=== PATIENT | female | born 1975 | race Caucasian/White ===

== ENCOUNTER → 2017-11-18 18:52 | Outpatient (CLI) | payer BC, SELFPAY ==
[2017-11-18 07:21] VITALS: BP 122/84; BMI 30.3
== END ==
PROVIDERS: Visit Provider Physician Assistant Surgical
DX: J02.9 Acute pharyngitis, unspecified (principal)
CPT/HCPCS: 87081

== ENCOUNTER → 2017-11-26 09:50 | Outpatient (CLI) | payer BC, SELFPAY ==
[2017-11-26 11:41] LABS: ALB/GLOB Ratio 1.1 RATIO (0.9-2.4); AST(SGOT) 12 U/L (15-37); Alanine Aminotransfer ALT/SGPT 20 U/L (13-56); Albumin, Serum 3.6 g/dL (3.2-5.0); Alkaline Phosphatase 66 U/L (45-117); Anion Gap 7 (5-15); BUN 7 mg/dL (7-18); BUN/Creat Ratio 8.4 RATIO (10-20); Calcium,Total 8.5 mg/dL (8.5-10.1); Chloride 106 mmol/L (98-107); Cholesterol 183 mg/dL (200); Creatinine, Serum 0.83 mg/dL (0.55-1.02); EST Glomerular Filtration Rate 79 mL/min (>60); Est Glom Filt Rate - Afr Amer 95 mL/min (>60); Globulin 3.2 g/dL (2.2-4.2); Glucose 88 mg/dL (74-106); High Density Lipoprotein 54 mg/dL; Potassium 3.8 mmol/L (3.5-5.1); Protein, Total 6.8 g/dL (6.4-8.2); Sodium Level 142 mmol/L (136-145); Triglycerides 112 mg/dL; Very Low Density Lipoprotein 22 mg/dL (5-40)
[2017-11-28 09:36] LABS: Vitamin D,25 Hydroxy 13.9 ng/mL (19.95-100.01)
== END ==
DX: Z00.00 Encounter for general adult medical examination without abnormal findings (principal); Z13.220 Encounter for screening for lipoid disorders; E55.9 Vitamin D deficiency, unspecified
CPT/HCPCS: 36415; 80053; 80061; 82306

== ENCOUNTER → 2018-02-04 08:33 | Outpatient (CLI) | payer BC, SELFPAY ==
[2018-02-06 09:57] LABS: Vitamin D,25 Hydroxy 21.9 ng/mL (29.95-100.01)
== END ==
DX: E55.9 Vitamin D deficiency, unspecified (principal)
CPT/HCPCS: 36415; 82306

== ENCOUNTER → 2018-12-12 07:00 | Outpatient (CLI) | payer BC, SELFPAY ==
[2017-11-18 07:21] VITALS: BMI 30.3
--- NOTE | 2018-12-12 07:04 | BI_ITS ---
MAMMOGRAPHY - BILATERAL SCREENING REASON FOR EXAM: Female, 43 years old. Routine annual screening examination. PERTINENT HISTORY: Non-contributory. TECHNIQUE: Digital bilateral breast dahlia (3D mammographic acquisition) in the CC and MLO projections. 2-D mediolateral oblique (MLO) and craniocaudad (CC) views of both breasts were obtained. CAD: Full Field Digital Mammography with Computer Added Detection was performed. COMPARISON: Comparison is made with prior examination dated April 20, 2017. FINDINGS: Breast Composition: The breasts are heterogeneously dense, which may obscure small masses. There is a 1.3 cm x 0.9 cm well-defined nodule in the upper lateral aspect of the left breast. There is also evidence of a 2.3 cm x 3.3 cm well-defined nodule in the upper lateral portion of the right breast. Adjacent to this, there is a well-defined nodule measuring 1.6 cm x 1.3 cm. A similar-appearing nodule is seen in the mid right breast as well. These most likely represent cysts. Correlation with ultrasound is recommended. These have increased in size as compared to prior study. No other significant abnormalities are identified. BI/SCREENING MAMM (CAD), BILAT IMPRESSION: Nodules in both breasts as described. These have increased in size as compared to prior study. Correlation with ultrasound is recommended. ASSESSMENT CATEGORY: BIRADS Category 0: Incomplete. Need additional imaging evaluation. A letter regarding these results will be sent to the patient by the facility within 30 days. Approximately 10% of breast cancers are not detected by mammography. A normal mammogram should not delay biopsy of a clinically suspicious abnormality. [id number] Electronically Signed: Hernan Raman, at 14:19 EST , Service support ,
== END ==
DX: Z12.31 Encounter for screening mammogram for malignant neoplasm of breast (principal)
CPT/HCPCS: 77063; 77067

== ENCOUNTER → 2018-12-18 08:03 | Outpatient (CLI) | payer BC, SELFPAY ==
[2017-11-18 07:21] VITALS: BMI 30.3
--- NOTE | 2018-12-18 08:09 | US_ITS ---
STUDY: ULTRASOUND BREAST - RIGHT REASON FOR EXAM: Female, 43 years old. Abnormal screening mammogram. TECHNIQUE: Axial and longitudinal images of the RIGHT breast were performed with a high resolution ultrasound transducer. COMPARISON: Comparison is made with prior mammogram dated December 12, 2018. FINDINGS: RIGHT Breast: 3 cysts are seen in the upper outer quadrant of the right breast. The largest measures 2.4 cm x 3 cm x 1.4 cm. These correspond to the mammographic findings. IMPRESSION: The mammographic findings correspond to 3 cysts in the upper outer quadrant of the right breast. The largest measures 2.4 cm x 3 size by 1.4 cm ASSESSMENT CATEGORY: BIRADS Category 2: Benign. A letter regarding these results will be sent to the patient by the facility within 30 days. Electronically Signed: Hernan Raman, at 13:26 EST , Service support , STUDY: ULTRASOUND BREAST - LEFT REASON FOR EXAM: Female, 43 years old. Abnormal screening mammogram. TECHNIQUE: Axial and longitudinal images of the LEFT breast were performed with a high resolution ultrasound transducer. COMPARISON: Comparison is made with prior mammogram dated December 12, 2018. FINDINGS: LEFT Breast: The mammographic abnormality corresponds to a 1.1 cm x 1.2 cm x 0.9 cm septated cyst at the 1:00 position the breast at 3 cm from the nipple. Routine mammographic follow-up is recommended. US/Breast Limited Unilateral IMPRESSION: The mammographic abnormality corresponds to a 1.1 cm x 1.2 cm x 0.9 cm septated cyst. ASSESSMENT CATEGORY: BIRADS Category 2: Benign. A letter regarding these results will be sent to the patient by the facility within 30 days. Electronically Signed: Hernan Raman, at 13:28 EST , Service support ,
[2018-12-18 09:14] LABS: ALB/GLOB Ratio 1.2 RATIO (0.9-2.4); AST(SGOT) 15 U/L (15-37); Alanine Aminotransfer ALT/SGPT 18 U/L (13-56); Albumin, Serum 3.6 g/dL (3.2-5.0); Alkaline Phosphatase 50 U/L (45-117); Anion Gap 4 (5-15); BUN 11 mg/dL (7-18); BUN/Creat Ratio 12.4 RATIO (10-20); Calcium,Total 8.2 mg/dL (8.5-10.1); Chloride 108 mmol/L (98-107); Cholesterol 181 mg/dL (200); Creatinine, Serum 0.89 mg/dL (0.55-1.02); EST Glomerular Filtration Rate 73 mL/min (>60); Est Glom Filt Rate - Afr Amer 88 mL/min (>60); Glucose 92 mg/dL (74-106); High Density Lipoprotein 68 mg/dL; Potassium 3.5 mmol/L (3.5-5.1); Protein, Total 6.6 g/dL (6.4-8.2); Sodium Level 139 mmol/L (136-145); Triglycerides 133 mg/dL; Very Low Density Lipoprotein 27 mg/dL (5-40)
[2018-12-18 09:25] LABS: Vitamin D,25 Hydroxy 17.1 ng/mL (29.95-100.01)
== END ==
LOC: OPUS 08:11 → PAVLAB 08:35
DX: R92.8 Other abnormal and inconclusive findings on diagnostic imaging of breast (principal); Z13.220 Encounter for screening for lipoid disorders; Z00.00 Encounter for general adult medical examination without abnormal findings; E55.9 Vitamin D deficiency, unspecified
CPT/HCPCS: 36415; 76642; 80053; 80061; 82306

== ENCOUNTER → 2019-03-03 10:25 | Outpatient (CLI) | payer BC, SELFPAY ==
[2017-11-18 07:21] VITALS: BMI 30.3
[2019-03-03 11:53] LABS: Anion Gap 4 (5-15); BUN 10 mg/dL (7-18); Calcium,Total 8.5 mg/dL (8.5-10.1); Chloride 108 mmol/L (98-107); Creatinine, Serum 0.91 mg/dL (0.55-1.02); EST Glomerular Filtration Rate 71 mL/min (>60); Est Glom Filt Rate - Afr Amer 86 mL/min (>60); Glucose 89 mg/dL (74-106); Potassium 4.2 mmol/L (3.5-5.1); Sodium Level 141 mmol/L (136-145)
[2019-03-05 11:35] LABS: Vitamin D,25 Hydroxy 29.4 ng/mL (29.95-100.01)
== END ==
DX: E83.51 Hypocalcemia (principal); E55.9 Vitamin D deficiency, unspecified
CPT/HCPCS: 36415; 80048; 82306

== ENCOUNTER → 2019-11-26 | Outpatient (CLI) | payer BC, SELFPAY ==
[2019-11-26 09:30] VITALS: BMI 30.3
--- NOTE | 2019-11-26 10:02 | RAD_ITS ---
STUDY: X-RAY CHEST REASON FOR EXAM: Female, 44 years old. COUGH, CONGESTION, COLD/FLU LIKE SYMPTOMS, RECENTLY EXPOSED TO INFLUENZA TECHNIQUE: PA and lateral views of the chest. COMPARISON: None. FINDINGS: Hyperinflation. There is no demonstrated pleural abnormality. Normal size heart. Normal mediastinum and joana. Normal visualized pulmonary arteries. Normal visualized aortic arch and descending thoracic aorta. There is a dextroscoliosis of the thoracic spine. Mild degenerative changes of the dorsal spine. Deformity of the right upper ribs most likely traumatic or postsurgical in nature. There is no demonstrated abnormality of the visualized soft tissue structures of the upper abdomen. RAD/Chest PA and Lateral IMPRESSION: No acute abnormality is seen. Electronically Signed: Hernan Raman, at 10:41 EST , Service support ,
== END | disposition home or self-care (01) ==
LOC: HPRAD 10:02
PROVIDERS: Referring Provider Nurse Practitioner Family; Visit Provider Nurse Practitioner Family
DX: R05 Cough (principal); R06.02 Shortness of breath
CPT/HCPCS: 71046

== ENCOUNTER → 2019-12-15 | Outpatient (CLI) | payer BC, SELFPAY ==
[2019-11-26 09:30] VITALS: BMI 30.3
[2019-12-15 10:06] LABS: ALB/GLOB Ratio 1.2 RATIO (0.9-2.4); AST(SGOT) 14 U/L (15-37); Alanine Aminotransfer ALT/SGPT 18 U/L (13-56); Albumin, Serum 3.6 g/dL (3.2-5.0); Alkaline Phosphatase 49 U/L (45-117); Anion Gap 6 (5-15); BUN 14 mg/dL (7-18); BUN/Creat Ratio 16.3 RATIO (10-20); Calcium,Total 8.6 mg/dL (8.5-10.1); Chloride 105 mmol/L (98-107); Cholesterol 190 mg/dL (200); Creatinine, Serum 0.86 mg/dL (0.55-1.02); EST Glomerular Filtration Rate 76 mL/min (>60); Est Glom Filt Rate - Afr Amer 91 mL/min (>60); Globulin 3.1 g/dL (2.2-4.2); Glucose 88 mg/dL (74-106); High Density Lipoprotein 66 mg/dL; Protein, Total 6.7 g/dL (6.4-8.2); Sodium Level 138 mmol/L (136-145); Triglycerides 98 mg/dL; Very Low Density Lipoprotein 20 mg/dL (5-40)
== END | disposition home or self-care (01) ==
LOC: LAB 08:58
DX: Z00.00 Encounter for general adult medical examination without abnormal findings (principal); E55.9 Vitamin D deficiency, unspecified; Z13.220 Encounter for screening for lipoid disorders
CPT/HCPCS: 80053; 80061; 82306

== ENCOUNTER → 2020-02-06 07:14 | Outpatient (CLI) | payer BC, SELFPAY ==
[2019-11-26 09:30] VITALS: BMI 30.3
--- NOTE | 2020-02-06 07:17 | BI_ITS ---
MAMMOGRAPHY - BILATERAL SCREENING REASON FOR EXAM: Female, 44 years old. Routine annual screening examination. PERTINENT HISTORY: Non-contributory. History of bilateral cysts. TECHNIQUE: Digital bilateral breast vickie (3D mammographic acquisition) in the CC and MLO projections. 2-D mediolateral oblique (MLO) and craniocaudad (CC) views of both breasts were obtained. CAD: Full Field Digital Mammography with Computer Added Detection was performed. COMPARISON: Comparison is made with prior examination dated December 12, 2018 and December 18, 2018. FINDINGS: Breast Composition: The breasts are heterogeneously dense, which may obscure small masses. There is a 2.8 cm x 2.4 cm well-defined nodule in the central retroareolar region of the right breast. Adjacent to this, there are several small well-defined nodules. Correlation with ultrasound is recommended No other significant abnormalities are identified. There has been no significant change since the prior study. BI/SCREEN MAMM (CAD) W/VICKIE BILAT IMPRESSION: Stable bilateral screening mammogram. Correlation with ultrasound of both breasts is recommended for further evaluation. ASSESSMENT CATEGORY: BIRADS Category 0: Incomplete. Need additional imaging evaluation. A letter regarding these results will be sent to the patient by the facility within 30 days. Approximately 10% of breast cancers are not detected by mammography. A normal mammogram should not delay biopsy of a clinically suspicious abnormality. [id number] Electronically Signed: Hernan Raman, at 11:28 EDT , Service support ,
== END ==
DX: Z12.31 Encounter for screening mammogram for malignant neoplasm of breast (principal)
CPT/HCPCS: 77063; 77067

== ENCOUNTER → 2020-02-14 | Outpatient (CLI) | payer BC, SELFPAY ==
[2019-11-26 09:30] VITALS: BMI 30.3
--- NOTE | 2020-02-14 07:59 | US_ITS ---
STUDY: ULTRASOUND BREAST - RIGHT REASON FOR EXAM: Female, 44 years old. History of bilateral cysts. TECHNIQUE: Axial and longitudinal images of the RIGHT breast were performed with a high resolution ultrasound transducer. # OF IMAGES: 32 COMPARISON: Comparison is made with prior mammogram dated February 06, 2020 and prior sonogram dated December 18, 2018. FINDINGS: RIGHT Breast: Once again, 3 cysts are seen in the upper half of the right breast. The largest cyst measures 2.2 cm x 2 size by 1.5 cm. This is at the 1:00 position in the breast at 2 cm from the nipple. This has decreased in size as compared to prior study. IMPRESSION: 3 cysts are seen in the upper portion of the right breast as described. The largest measures 2.2 cm x 2 signed by 1.5 cm. This has decreased slightly in size as compared to prior study. ASSESSMENT CATEGORY: BIRADS Category 2: Benign. A letter regarding these results will be sent to the patient by the facility within 30 days. Electronically Signed: Hernan Danisha, at 9:28 EDT , Service support , STUDY: ULTRASOUND BREAST - LEFT REASON FOR EXAM: Female, 44 years old. History of breast cysts. TECHNIQUE: Axial and longitudinal images of the LEFT breast were performed with a high resolution ultrasound transducer. # OF IMAGES: 32 COMPARISON: Comparison is made with prior mammogram dated February 06, 2020 and prior ultrasound of the left breast dated December 18, 2018. FINDINGS: LEFT Breast: 2 cysts are seen in the upper outer quadrant of the left breast. The largest measures 1 cm x 0.8 cm x 0.6 cm. This is at the 2:00 position of the breast at 3 cm from nipple. This is essentially unchanged. US/Breast Limited Unilateral IMPRESSION: Stable cyst in the left breast. ASSESSMENT CATEGORY: BIRADS Category 2: Benign. A letter regarding these results will be sent to the patient by the facility within 30 days. Electronically Signed: Hernan Raman, at 9:28 EDT , Service support ,
== END | disposition home or self-care (01) ==
LOC: OPUS 07:57
DX: R92.2 Inconclusive mammogram (principal)
CPT/HCPCS: 76642

== ENCOUNTER → 2021-01-24 09:39 | Outpatient (CLI) | payer BC, SELFPAY ==
[2019-11-26 09:30] VITALS: BMI 30.3
[2021-01-24 11:56] LABS: ALB/GLOB Ratio 1.3 RATIO (0.9-2.4); AST(SGOT) 13 U/L (15-37); Alanine Aminotransfer ALT/SGPT 26 U/L (13-56); Albumin, Serum 3.5 g/dL (3.2-5.0); Alkaline Phosphatase 51 U/L (45-117); Anion Gap 4 (5-15); BUN 19 mg/dL (7-18); BUN/Creat Ratio 22.8 RATIO (10-20); Calcium,Total 8.9 mg/dL (8.5-10.1); Chloride 108 mmol/L (98-107); Cholesterol 195 mg/dL (200); Creatinine, Serum 0.83 mg/dL (0.55-1.02); EST Glomerular Filtration Rate 78 mL/min (>60); Est Glom Filt Rate - Afr Amer 94 mL/min (>60); Globulin 2.7 g/dL (2.2-4.2); Glucose 86 mg/dL (74-106); High Density Lipoprotein 69 mg/dL; Protein, Total 6.2 g/dL (6.4-8.2); Sodium Level 139 mmol/L (136-145); Triglycerides 78 mg/dL; Very Low Density Lipoprotein 16 mg/dL (5-40)
[2021-01-26 10:03] LABS: Vitamin D,25 Hydroxy 17.3 ng/mL
== END ==
DX: Z13.89 Encounter for screening for other disorder (principal)
CPT/HCPCS: 36415; 80053; 80061; 82306

== ENCOUNTER → 2021-02-06 07:04 | Outpatient (CLI) | payer BC, SELFPAY ==
[2019-11-26 09:30] VITALS: BMI 30.3
--- NOTE | 2021-02-06 07:16 | BI_ITS ---
MAMMOGRAPHY - BILATERAL SCREENING REASON FOR EXAM: Female, 45 years old. Routine annual screening examination. PERTINENT HISTORY: Non-contributory. TECHNIQUE: Digital bilateral breast vickie (3D mammographic acquisition) in the CC and MLO projections. 2-D mediolateral oblique (MLO) and craniocaudad (CC) views of both breasts were obtained. CAD: Full Field Digital Mammography with Computer Added Detection was performed. COMPARISON: Comparison is made with prior study dated 02/06/2020 and 10/11/2019. FINDINGS: Breast Composition: The breasts are heterogeneously dense, which may obscure small masses. Once again, there are 2 dominant nodules in the retroareolar region of the right breast. The larger nodule is anterior in location and measures 3.2 cm x 2.8 cm. These have been demonstrated to be cysts on prior sonogram. No other significant abnormalities are identified. BI/SCRN MAMM (CAD)W/VICKIE BILAT IMPRESSION: 3 dominant nodules are seen in retroareolar region of the right breast. Prior sonogram demonstrated these nodules to be cysts. ASSESSMENT CATEGORY: BIRADS Category 2: Benign. A letter regarding these results will be sent to the patient by the facility within 30 days. Approximately 10% of breast cancers are not detected by mammography. A normal mammogram should not delay biopsy of a clinically suspicious abnormality. [id number] Electronically Signed: Hernan Raman MD at 8:50 EDT , Service support ,
== END ==
DX: Z12.31 Encounter for screening mammogram for malignant neoplasm of breast (principal)
CPT/HCPCS: 77063; 77067

== ENCOUNTER 2021-12-19 08:07 | Outpatient (CLI) | payer BC, SELFPAY ==
[2021-12-19 09:08] LABS: ALB/GLOB Ratio 1.1 RATIO (0.9-2.4); AST(SGOT) 16 U/L (15-37); Alanine Aminotransfer ALT/SGPT 19 U/L (13-56); Albumin, Serum 3.5 g/dL (3.2-5.0); Alkaline Phosphatase 61 U/L (45-117); Anion Gap 3 (5-15); BUN 10 mg/dL (7-18); BUN/Creat Ratio 11.8 RATIO (10-20); Calcium,Total 8.9 mg/dL (8.5-10.1); Chloride 108 mmol/L (98-107); Cholesterol 194 mg/dL (200); Creatinine, Serum 0.84 mg/dL (0.55-1.02); EST Glomerular Filtration Rate 76 mL/min (>60); Est Glom Filt Rate - Afr Amer 92 mL/min (>60); Globulin 3.1 g/dL (2.2-4.2); Glucose 95 mg/dL (74-106); High Density Lipoprotein 65 mg/dL; Potassium 4.1 mmol/L (3.5-5.1); Protein, Total 6.6 g/dL (6.4-8.2); Sodium Level 139 mmol/L (136-145); Triglycerides 106 mg/dL; Very Low Density Lipoprotein 21 mg/dL (5-40)
[2021-12-21 07:55] LABS: Vitamin D,25 Hydroxy 28.9 ng/mL
== END 2021-12-19 23:59 | disposition home or self-care (01) ==
PROVIDERS: Visit Provider Family Medicine
DX: Z00.00 Encounter for general adult medical examination without abnormal findings (principal); Z13.220 Encounter for screening for lipoid disorders; E55.9 Vitamin D deficiency, unspecified
CPT/HCPCS: 36415; 80053; 80061; 82306

== ENCOUNTER 2022-02-15 07:41 | Day surgery (SDC) | payer BC, SELFPAY ==
--- NOTE | 2022-02-15 07:54 | H&P.OPEN ---
HPI - General HPI Narrative SIMEON LLANOS, is a 46 F who presents for screening colonoscopy. Patient did have a previous colonoscopy about 15 years ago in [place]. Patient denies any family history of colon cancer --father had polyps-- not noted to be large. Patient has bowel moods daily denies any blood. Patient denies any chronic abdominal pain/nausea/reflux. PFSH Medical History Alcohol use Esophageal atresia Hemorrhoids Non-smoker Home Medications cholecalciferol (vitamin D3) [Vitamin D3] 25 mcg PO DAILY 02/11/22 [History Last Taken Unknown] Allergy/AdvReac Type Severity Reaction Status Date / Time Penicillins Allergy Unknown Verified 02/15/22 08:14 Sulfa (Sulfonamide Allergy Unknown Verified 02/15/22 08:14 Antibiotics) Surgical History (Updated 02/11/22 @ 13:09 by Gabriella Noriega) H/O sinus surgery Hx of colonoscopy Social History Smoking Status: Never smoker alcohol intake: never Past Medical/Surgical History Planned Operation Planned Operative Procedure/s: CSCOPE OA Previous Hospitalizations/Surgeries HX Hospitalizations: No Any Problems With Anesthesia: No You/Your Family Experience Fever (Hyperthermia) With Anes: No Cholinesterase deficiency: No Cardiovascular Hx Hypertension: No Respiratory Hx Sleep Apnea: No Hx Respiratory Tract Infection/Cold (presently): No Do You Snore Loudly (louder than talking or can be heard): No Do You Often Feel Tired/ Fatigued/ Sleepy Dring Daytime?: No Has Anyone Observed You Stop Breathing During Sleep?: No Result (for STOP score): Negative Smoking Status: Never smoker Neurological Does patient have nerve stimulator: No Reproduction : No Allergies Penicillins Allergy (Verified 02/15/22 08:14) Unknown Sulfa (Sulfonamide Antibiotics) Allergy (Verified 02/15/22 08:14) Unknown Discharge Is Pt Admitted From a Intermediate, or a Nursing Home: No After D/C, Where Do you Plan to Go: Return Home Physical Exam Const alert, oriented x3 and no apparent distress HEENT normocephalic and head/scalp atraumatic Resp normal respiratory effort Cardio regular rate GI soft to palpation and non-tender; Negative for non-distended Palpation: Negative for guarding Extremity no clubbing, cyanosis or edema Neuro CN's II-XII intact bilaterally Psych mental status grossly normal Assessment & Plan Assessment/Plan (1) Encounter for screening for malignant neoplasm of colon: Procedure Criteria Type of Procedure Procedure Type: Elective Elective Risks - COVID COVID Risk Discussion: The surgeon/proceduralist and patient have discussed in detail the risk of exposure to and/or potential harm posed by the COVID-19 virus with having a surgery/procedure at this time versus the risk of delaying the surgery/procedure. It is not possible to know either the risk of delaying the surgery or procedure or chance of getting an infection with perfect accuracy, but a joint decision was made between the patient and the surgeon/proceduralist to proceed at this time with the scheduled surgery/procedure as indicated on the consent form. Surgery Risks - Colonoscopy Risks Include but are not Limited To: Risks include but are not limited to: Bleeding, perforation requiring further surgery, inability to complete colonoscopy requiring barium enema.
[2022-02-15 08:14] VITALS: BP 153/90; PULSE 90; RESP 12; TEMP 36.6; O2SAT 100; BMI 29.5
[2022-02-15 08:19] LABS: Internal QC Validated? YES +Cl - CLEAR BKGD; Pregnancy, Urine Negative Negative
[2022-02-15] MEDS: Lactated Ringers 1,000 ML 15 ML IV (08:27)
--- NOTE | 2022-02-15 09:00 | COLBX_PTH ---
PATIENT: SIMEON LLANOS LOC: EN U#:[id number] AGE/SX: 46/F ROOM: RE02/15/[address]: Dr. Rebeka Gray MD : 1975 BED: DIS: 02/15/2022 SPEC #: [id number] RECD: 02/15/22 13:49 STATUS: DANE REBella #: [id number] TONY: 02/15/22 09:[address]: Rebeka Gray DEPT: SURGICAL PATHOLOGY RECD BY: Amanda Mon ENTERED: 02/15/22 14:01 SP TYPE: COLON BX OTHR DR: KRISTOFER FORREST MD Tissues: Descending colon Procedures: Surgery Specimen Level IV HEADER OPERATION: Colonoscopy Open Access (MAC) PRE-OP DIAGNOSIS: Encounter for Screening for malignant neoplasm TISSUE SUBMITTED: Distal Descending colon polyp MICROSCOPIC DIAGNOSIS Distal Descending colon polyp, biopsy: Fragments of tubular adenoma. AM:maricel 02/16/2022 MICROSCOPIC DESCRIPTION Slides are reviewed. GROSS DESCRIPTION Received in fixative is one container labeled with the patient's name and designated distal descending colon polyp. The specimen consists of multiple irregular fragments of light alfaro soft tissue that in aggregate measure 1.5 x 0.3 x 0.1 cm. The specimen is totally submitted in one cassette. / SJ:maricel 02/15/2022 TC:5 CPT: 56121
[2022-02-15 09:17] VITALS: BP 118/81; BP 153/90; PULSE 74; RESP 16; TEMP 36.2; O2SAT 97
--- NOTE | 2022-02-15 09:18 | OP.COLON_ITS ---
Patient Name: Nico Owen Procedure Date: 02/15/2022 8:35 AM Date of : 1975 Age: 46 Procedure: Colonoscopy Indications: Screening for colorectal malignant neoplasm Providers: Rebeka Gray MD Medicines: Monitored Anesthesia Care Patient Profile: This is a 46 year old female. Last Colonoscopy: more than 10 years ago. Complications: No immediate complications. Procedure: Pre-Anesthesia Assessment: - Prior to the procedure, a History and Physical was performed, and patient medications and allergies were reviewed. The patient's tolerance of previous anesthesia was also reviewed. The risks and benefits of the procedure and the sedation options and risks were discussed with the patient. All questions were answered, and informed consent was obtained. Prior Anticoagulants: The patient has taken no previous anticoagulant or antiplatelet agents. ASA Grade Assessment: Per anesthesia. After reviewing the risks and benefits, the patient was deemed in satisfactory condition to undergo the procedure. After I obtained informed consent, the scope was passed under direct vision. Throughout the procedure, the patient's blood pressure, pulse, and oxygen saturations were monitored continuously. The pediatric colonoscope was introduced through the anus and advanced to the cecum, identified by the appendiceal orifice, ileocecal valve and palpation. The colonoscopy was somewhat difficult due to significant looping. Successful completion of the procedure was aided by applying abdominal pressure. The patient tolerated the procedure well. The quality of the bowel preparation was good. Scope In: 8:45:09 AM Scope Withdrawal Time 0 hours 15 minutes 52 seconds Scope Out: 9:13:58 AM Total Procedure Duration Time 0 hours 28 minutes 49 seconds Findings: The perianal and digital rectal examinations were normal. A less than 5 mm polyp was found in the distal descending colon. The polyp was semi-pedunculated. Polypectomy was attempted, initially using a hot snare. Polyp resection was incomplete with this device. This intervention then required a different device and polypectomy technique. The polyp was removed with a cold biopsy forceps. Resection and retrieval were complete. The exam was otherwise without abnormality on direct and retroflexion views. Impression: - One less than 5 mm polyp in the distal descending colon, removed with a cold biopsy forceps. Resected and retrieved. - The examination was otherwise normal on direct and retroflexion views. Recommendation: - Discharge patient to home. - Resume previous diet. - Continue present medications. - Await pathology results. - Repeat colonoscopy in 5 years for surveillance based on pathology results. Procedure Code(s): --- Professional --- 42630, PT, Colonoscopy, flexible; with biopsy, single or multiple Diagnosis Code(s): --- Professional --- Z12.11, Encounter for screening for malignant neoplasm of colon D12.4, Benign neoplasm of descending colon CPT copyright 2017 [employer]. All rights reserved. The codes documented in this report are preliminary and upon faculty neuropsychologist review may be revised to meet current compliance requirements. MD Rebeka Bond MD 02/15/2022 9:18:16 AM This report has been signed electronically. Number of Addenda: 0 Note Initiated On: 02/15/2022 8:35 AM
[2022-02-15 09:20] VITALS: BP 134/71; BP 153/90; PULSE 70; RESP 16; O2SAT 99
[2022-02-15 09:25] VITALS: BP 127/72; BP 153/90; PULSE 75; RESP 16; O2SAT 97
[2022-02-15 09:33] VITALS: BP 127/72; BP 153/90; PULSE 73; RESP 16; TEMP 36.3; O2SAT 100
[2022-02-15 09:46] VITALS: BP 153/90
== END 2022-02-15 09:59 | disposition home or self-care (01) ==
LOC: EN 07:45 → AC 07:45
PROVIDERS: Anesthesiology; PCP Family Medicine; Referring Provider Surgery; Visit Provider Surgery
PROC: 0DJD8ZZ Inspection of Lower Intestinal Tract, Via Natural or Artificial Opening Endoscopic (ICD-10-PCS; CPT 45378; principal; 2022-02-15 08:55)
DX: Z12.11 Encounter for screening for malignant neoplasm of colon (principal); D12.4 Benign neoplasm of descending colon; Z83.71 Family history of colonic polyps
CPT/HCPCS: 45380; 81025; 87426; 88305; J7120; J2405

== ENCOUNTER → 2022-02-18 | Outpatient (CLI) | payer BC, SELFPAY ==
--- NOTE | 2022-02-18 16:48 | BI_ITS ---
MAMMOGRAPHY - BILATERAL SCREENING REASON FOR EXAM: Female, 46 years old. Routine annual screening examination. PERTINENT HISTORY: Non-contributory. History of bilateral breast cysts. TECHNIQUE: Digital bilateral breast vickie (3D mammographic acquisition) in the CC and MLO projections. 2-D mediolateral oblique (MLO) and craniocaudad (CC) views of both breasts were obtained. CAD: Full Field Digital Mammography with Computer Added Detection was performed. COMPARISON: Comparison is made with prior study dated 02/06/2021 and 02/06/2020 FINDINGS: Breast Composition: The breasts are heterogeneously dense, which may obscure small masses. There are 3 adjacent well-defined nodules in the retroareolar region of the right breast. The largest nodule measures 1.7 cm x 1 cm. These were demonstrated to be cysts on prior sonogram. There is also evidence of a 1.3 cm well-defined nodule in the slightly inferior lateral aspect of the right breast. It is also evidence of a 1.6 cm x 1.3 cm well-defined nodule in the upper lateral aspect of the left breast. This was demonstrated to be a cyst on prior ultrasound. No other significant abnormalities are identified. BI/SCRN MAMM (CAD)W/VICKIE BILAT IMPRESSION: Stable bilateral nodular densities more prominent in the right breast which were demonstrated to be cysts on prior sonogram. ASSESSMENT CATEGORY: BIRADS Category 2: Benign. A letter regarding these results will be sent to the patient by the facility within 30 days. Approximately 10% of breast cancers are not detected by mammography. A normal mammogram should not delay biopsy of a clinically suspicious abnormality. [id number] Electronically Signed: Hernan Raman MD at 8:44 EDT ,
== END | disposition home or self-care (01) ==
LOC: OPBI 02-19 07:30
PROVIDERS: PCP Family Medicine
DX: Z12.31 Encounter for screening mammogram for malignant neoplasm of breast (principal)
CPT/HCPCS: 77063; 77067

== ENCOUNTER → 2022-08-25 | Outpatient (CLI) | payer BC, SELFPAY ==
--- NOTE | 2022-08-25 07:45 | US_ITS ---
STUDY: ULTRASOUND BREAST - RIGHT REASON FOR EXAM: Female, 47 years old. Palpable lump in the right breast. TECHNIQUE: Axial and longitudinal images of the RIGHT breast were performed with a high resolution ultrasound transducer. # OF IMAGES: 27 COMPARISON: Comparison is made with prior sonogram of the right breast dated 02/14/2020. FINDINGS: RIGHT Breast: Once again, 3 cysts are seen in the upper outer quadrant of the right breast. The largest cyst measures 2.8 cm x 2.9 cm x 2.4 cm. This is at the 1 o''clock position of the breast at 2 cm from the nipple. This corresponds to the palpable abnormality. US/Breast Limited Unilateral IMPRESSION: 3 cysts are seen in the upper outer quadrant of the right breast corresponding to the palpable abnormality. The largest cyst measures 2.8 cm x 2.9 cm x 2.4 cm ASSESSMENT CATEGORY: BIRADS Category 2: Benign. A letter regarding these results will be sent to the patient by the facility within 30 days. Electronically Signed: Hernan Raman MD at 9:07 EST ,
== END | disposition home or self-care (01) ==
LOC: OPUS 07:42
PROVIDERS: PCP Family Medicine; Visit Provider Family Medicine
DX: N63.41 Unspecified lump in right breast, subareolar (principal)
CPT/HCPCS: 76642

== ENCOUNTER → 2023-01-08 | Outpatient (CLI) | payer BC, SELFPAY ==
[2023-01-08 09:01] LABS: ALB/GLOB Ratio 1.2 RATIO (0.9-2.4); AST(SGOT) 12 U/L (15-37); Alanine Aminotransfer ALT/SGPT 20 U/L (13-56); Albumin, Serum 3.6 g/dL (3.2-5.0); Alkaline Phosphatase 57 U/L (45-117); Anion Gap 2 (5-15); BUN 11 mg/dL (7-18); BUN/Creat Ratio 12.8 RATIO (10-20); Calcium,Total 8.9 mg/dL (8.5-10.1); Chloride 108 mmol/L (98-107); Cholesterol 205 mg/dL (200); Creatinine, Serum 0.86 mg/dL (0.55-1.02); EST Glomerular Filtration Rate 75 mL/min (>60); Est Glom Filt Rate - Afr Amer 90 mL/min (>60); Globulin 2.9 g/dL (2.2-4.2); Glucose 106 mg/dL (74-106); High Density Lipoprotein 72 mg/dL; Potassium 4.1 mmol/L (3.5-5.1); Protein, Total 6.5 g/dL (6.4-8.2); Sodium Level 139 mmol/L (136-145); Triglycerides 85 mg/dL; Very Low Density Lipoprotein 17 mg/dL (5-40)
[2023-01-10 08:56] LABS: Vitamin D,25 Hydroxy 24.1 ng/mL
== END | disposition home or self-care (01) ==
LOC: LAB 08:04
PROVIDERS: PCP Family Medicine; Visit Provider Family Medicine
DX: Z00.00 Encounter for general adult medical examination without abnormal findings (principal); Z13.220 Encounter for screening for lipoid disorders; E55.9 Vitamin D deficiency, unspecified
CPT/HCPCS: 36415; 80053; 80061; 82306

== ENCOUNTER → 2023-03-04 | Outpatient (CLI) | payer BC, SELFPAY ==
--- NOTE | 2023-03-04 07:11 | BI_ITS ---
MAMMOGRAPHY - BILATERAL SCREENING REASON FOR EXAM: Female, 47 years old. Routine annual screening examination. PERTINENT HISTORY: Non-contributory. TECHNIQUE: Digital bilateral breast vickie (3D mammographic acquisition) in the CC and MLO projections. 2-D mediolateral oblique (MLO) and craniocaudad (CC) views of both breasts were obtained. CAD: Full Field Digital Mammography with Computer Added Detection was performed. COMPARISON: Comparison is made with prior study February 18, 2022 and February 06, 2021. FINDINGS: Breast Composition: The breasts are heterogeneously dense, which may obscure small masses. Once again, 3 adjacent well-defined nodules are seen in the retroareolar region of the right breast. The largest nodule at this time measures 2.7 cm x 2.3 cm.. 2 adjacent nodules are also seen in the upper lateral aspect of the left breast. The larger nodule measures 1.4 cm. Correlation with ultrasound is recommended. No other significant abnormalities are identified. BI/SCRN MAMM (CAD)W/VICKIE BILAT IMPRESSION: Bilateral breast nodules as described. Correlation with ultrasound is recommended. ASSESSMENT CATEGORY: BIRADS Category 0: Incomplete. Need additional imaging evaluation. A letter regarding these results will be sent to the patient by the facility within 30 days. Approximately 10% of breast cancers are not detected by mammography. A normal mammogram should not delay biopsy of a clinically suspicious abnormality. [id number] Electronically Signed: Hernan Raman MD at 8:55 EDT ,
== END | disposition home or self-care (01) ==
LOC: OPBI 07:09
PROVIDERS: PCP Family Medicine; Referring Provider Family Medicine; Visit Provider Family Medicine
DX: Z12.31 Encounter for screening mammogram for malignant neoplasm of breast (principal)
CPT/HCPCS: 77063; 77067

== ENCOUNTER → 2023-03-07 | Outpatient (CLI) | payer BC, SELFPAY ==
--- NOTE | 2023-03-07 15:17 | US_ITS ---
STUDY: ULTRASOUND BREAST -BILATERAL REASON FOR EXAM: Female, 47 years old. Further assessment of breast nodules on recent mammogram. TECHNIQUE: Axial and longitudinal grayscale and color images of the bilateral breasts were performed. The right upper outer and right upper inner quadrant and the left upper outer quadrant were assessed. # OF IMAGES: 40 COMPARISON: Mammogram from March 04, 2023. Right breast ultrasound from August 25, 2022. FINDINGS: Right breast: There are 3 simple appearing cysts in the right breast as follow: * 2.2 x 1.6 x 0.9 cm at the 12:00 position, approximately 2 cm from the nipple. * 2.3 x 3.1 x 1.5 cm at the 1:00 position, approximately 2 cm from the nipple. * 1.4 x 1.2 x 1.1 cm at the 1:00 position, approximately 3 cm from the nipple. Left breast: There are 2 simple appearing cysts in the left breast as follow: * 2.0 x 1.7 x 1.0 cm at the 1:00 position, approximately 2 cm from the nipple. * 0.8 x 0.8 x 0.8 cm at the 2:00 position, approximately 3 cm from the nipple. The cysts demonstrate no internal vascularity. There are no solid lesions identified in the surveyed breasts. US/Breast Limited Unilateral IMPRESSION: Simple appearing benign cysts in the bilateral breasts as detailed above. ASSESSMENT CATEGORY: BIRADS Category 2: Benign. A letter regarding these results will be sent to the patient by the facility within 30 days. Electronically Signed: Jaspal Cordova MD at 9:11 EDT ,
== END | disposition home or self-care (01) ==
PROVIDERS: PCP Family Medicine; Referring Provider Family Medicine; Visit Provider Family Medicine
DX: R92.8 Other abnormal and inconclusive findings on diagnostic imaging of breast (principal)
CPT/HCPCS: 76642

== ENCOUNTER 2023-12-20 08:10 | Emergency (ER) | payer BC, SELFPAY ==
[2023-12-20 08:10] VITALS: BP 149/102; PULSE 99; RESP 16; TEMP 36.2; O2SAT 100
--- NOTE | 2023-12-20 08:40 | CT_ITS ---
HISTORY: headache. TECHNIQUE: Multiple axial images were obtained of the head without intravenous contrast. A radiation dose optimization technique was used for this scan. 224 images. COMPARISON: None. FINDINGS: BRAIN PARENCHYMA: No significant attenuation abnormality. No acute intra-axial hemorrhage. CSF SPACES: Cerebral ventricles, cortical sulci, and other extra-axial CSF spaces within normal limits in size for age. No midline shift or other significant mass effect. No acute extra-axial hemorrhage. OTHER: Intact calvarium. No significant air fluid levels in the paranasal sinuses or mastoid air cells. Unremarkable orbits. CT/Brain/Head without Contrast IMPRESSION: No acute intracranial process identified. Electronically Signed: Angela Lucio MD at 9:55 EST ,
--- NOTE | 2023-12-20 08:43 | EX.ED.DYSGE1 ---
HPI History of Present Illness Chief Complaint: Headache Informant: patient Onset/Context/Timing Onset: Days (5 days) Context: Gradual Onset Timing: Waxes and wanes Narrative Narrative: Patient presents secondary to headache, nausea, generalized weakness that is been ongoing since Tuesday, 4 days ago. She describes the headache being in the bilateral temporal area. She has been taking ibuprofen and Naprosyn without significant improvement. She has had nausea but no vomiting. She is not sure if she has light sensitivity. No vision changes. She states she fell in June of last year striking her face and has had some chronic problems since that time. Her neurologist is currently ordering a MRI of her C-spine. She has not noted frequent headaches since that time. [facility] Medical History Alcohol use BPPV (benign paroxysmal positional vertigo) Esophageal atresia Hemorrhoids Non-smoker Home Medications cholecalciferol (vitamin D3) 25 mcg (1,000 unit) capsule (Vitamin D3) 25 mcg PO DAILY 02/11/22 [History Last Taken Unknown] azithromycin 250 mg tablet 250 mg PO QDAY #6 tabs 08/21/23 [Rx Last Taken Unknown] meclizine 25 mg tablet 25 mg PO BID PRN dizziness #20 tabs 12/19/23 [Rx Last Taken Unknown] Allergy/AdvReac Type Severity Reaction Status Date / Time Penicillins Allergy Unknown Verified 12/19/23 07:48 Sulfa (Sulfonamide Allergy Unknown Verified 12/19/23 07:48 Antibiotics) Surgical History H/O sinus surgery Hx of colonoscopy Social History Smoking Status: Never smoker alcohol intake: never ROS ROS ED Constitutional Constitutional ED: Denies chills or fever(s) Eyes Eyes: Denies discharge from eye(s) ENT ENT ED: Denies discharge from eye(s), rhinorrhea or sore throat Cardiovascular Cardiovascular: Denies chest pain or palpitations Respiratory/Chest Respiratory/Chest: Denies cough or dyspnea Gastrointestinal Gastrointestinal: Reports diarrhea and nausea; Denies abdominal pain or vomiting Genitourinary Genitourinary ED: Denies dysuria Musculoskeletal Musculoskeletal: Reports myalgias; Denies back pain or extremity pain Integumentary Denies Abrasions or rash Neurologic Neurologic: Reports headache(s) and weakness Psychiatric Psychiatric: Denies anxiety or depression Allergic/Immunologic Allergic/Immunologic ED: Denies lip swelling or urticaria EXAM Physical Exam Const Vital Signs: 12/20/23 08:10 Temperature 97.2 F L Temperature Source Temporal Pulse Rate 99 Respiratory Rate 16 Blood Pressure 149/102 H Blood Pressure Mean 117 Pulse Ox 100 Oxygen Delivery Method Room Air Positive well nourished and well developed General Appearance ED: well developed HEENT Reports moist mucous membranes Eyes PERRL and EOMs intact bilaterally Chest Wall inspection of chest normal and palpation of chest normal Resp normal respiratory effort and clear to auscultation bilaterally Cardio regular rate and regular rhythm GI non-tender Palpation: soft Extremity normal to inspection Neuro oriented x3 and no sensory deficits noted Motor Exam: strength 5/5 throughout Psych mental status grossly normal Skin no rashes or lesions noted MDM MDM MDM Narrative Medical decision making narrative: IV line established. Patient given Toradol, Reglan, Benadryl, and IV fluids. Swab for COVID, influenza, and RSV will be obtained. CT scan of the head obtained to evaluate for mass, edema, bleed. Radiography Diagnostic Testing: Clinical Impression(s) from Imaging Studies Brain CT 12/20/23 08:40 IMPRESSION: No acute intracranial process identified. Electronically Signed: Angela Lucio MD at 9:55 EST , Treatment and Re-Evaluation :: Swab for COVID, influenza, and RSV is negative. CT scan of the head is unremarkable. On repeat evaluation patient does feel improved. Patient be discharged home to sleep in a quiet dark room. Return instructions provided. Discharge Plan Triage Chief Complaint: Headache ED Provider: Violeta Grant Dx/Rx/DC Orders Clinical Impression: Migraine Instructions: ED, Migraine (Classical) Prescriptions: No Action azithromycin 250 mg tablet 250 mg PO QDAY Qty: 6 0RF Rx Instructions: 2 tablets today, then 1 tablet daily on days 2 through 5 meclizine 25 mg tablet 25 mg PO BID PRN (Reason: dizziness) Qty: 20 0RF cholecalciferol (vitamin D3) [Vitamin D3] 25 mcg (1,000 unit) Capsule 25 mcg PO DAILY Primary Care Provider: KRISTOFER FORREST Referrals: KRISTOFER FORREST MD [Primary Care Provider] - 3-5 Days if not improving Disposition Disposition: Home, Self Care
[2023-12-20 08:44] VITALS: BMI 31.4
[2023-12-20] MEDS: Metoclopramide 10 MG/2 ML Vial IV (09:15)
[2023-12-20] MEDS: 0.9% Normal Saline (1000mL) 1,000 ML 1000 ML IV (09:15)
[2023-12-20] MEDS: DiphenhydrAMINE 50 MG/ML Syringe 25 MG IV (09:15)
[2023-12-20] MEDS: Ketorolac 30 MG/ML Syringe IV (09:16)
--- OUTSIDE RECORDS SUMMARY | 2023-12-20 09:43 | XMS RPT_ITS | CCD ---
Author Name Unknown Address [address] [place] [address] Organization [facility] Care Team Providers Care Steward/Stewardess Dining Room Name Role Phone KRISTOFER FORREST Unavailable Unavailable REFERRINGANGELES Unavailable Unavailable KEENAN PAEZ Unavailable Unavailable KRISTOFER FORREST Primary Care Unavailable DEMARCO JIMENES Attending Unavailable Allergies Allergy Classification Reported Allergen(s) Allergy Type Date of Onset Reaction(s) Facility (1 source) Penicillins; Translations: [PENICILLINS] Propensity to adverse reactions to drug (disorder) 5 [facility] Repository (1 source) Sulfonamides (Antibiotic); Translations: [SULFA (SULFONAMIDE ANTIBIOTICS)] Propensity to adverse reactions to drug (disorder) 3 [facility] Repository Problems Active Problems Problem Classification Problem Date Documented Da te Episodic/Chronic E Codes: Fall (1 source) Unspecified fall, initial encounter; Translations: [Fall, initial encounter] Onset: 06-22-2023 Episodic Fracture of upper limb (1 source) Unspecified fracture of the lower end of right radius, initial encounter for closed fracture; Translations: [Closed fracture of distal end of right radius, unspecified fracture morphology, initial encounter] Onset: 06-22-2023 Episodic Open wounds of extremities (1 source) Laceration without foreign body of right little finger without damage to nail, initial encounter; Translations: [Laceration of right little finger without foreign body without damage to nail, initial encounter] Onset: 06-22-2023 Episodic Unclassified (1 source) Unknown / UNK(Unknown) Onset: 04-20-2017 Past or Other Problems Problem Classification Problem Date Documented Da te Episodic/Chronic Unclassified (1 source) MA MAMMOGRAM SCREENING BILATERAL W/VICKIE SCREENING Onset: 04-20-2017 Results Test Name Value Interpretation Reference Range Facil ity Encounters Encounter Date Encounter Type Care Provider Facility Start: 06-22-2023 End: 06-23-2023 Emergency department patient visit KRISTOFER FORREST Facility:[facility] Start: 04-20-2017 End: 04-21-2017 Ambulatory KRISTOFER FORREST Facility:[facility] Payers Date Payer Category Payer Unknown [id number] Summary Purpose Family History No Family History Records FoundNo Family History Records Found Advance Directives No Advanced Directives Records FoundNo Advanced Directives Records Found Additional Source Comments INFORMATION SOURCE (unrecogn ized section and content) DATE CREATED AUTHOR AUTHOR'S ORGANIZ ATION 06/23/2023 [facility] FOR RECORDS PERTAINING TO PATIENTS WHO ARE OR HAVE BEEN ENROLLED IN A CHEMICAL DEPENDENCY/SUBSTANCEABUSE PROGRAM, SOME INFORMATION MAY BE OMITTED. This clinical summary was aggregated from multiple sources. Caution should be exercised in using it in the provision of clinical care. This summary normalizes information from multiple sources, and as a consequence, information in this document may materially change the coding, format and clinical context of patient data. In addition, data may be omitted in some cases. CLINICAL DECISIONS SHOULD BE BASED ON THE PRIMARY CLINICAL RECORDS. [facility]. provides no warranty or guarantee of the accuracy or completeness of information in this document.
[2023-12-20 11:00] VITALS: BP 132/78; BP 134/78; PULSE 64; RESP 16; TEMP 36.6; O2SAT 98; O2SAT 99
== END 2023-12-20 11:16 | disposition home or self-care (01) ==
PROVIDERS: Emergency Provider Emergency Medicine; PCP Family Medicine; Visit Provider Emergency Medicine
DX: G43.909 Migraine, unspecified, not intractable, without status migrainosus (principal)
CPT/HCPCS: 70450; 87631; 96361; 96374; 96375; 99283; J7030

== ENCOUNTER 2024-01-11 17:30 | Outpatient (RCR) | payer BC, SELFPAY ==
--- NOTE | 2023-10-06 14:37 | HP.PTEVAL_ITS ---
Patient's Visit Information Visit Information Visit Information: SIMEON LLANOS is a 48 year old F referred to Physical Therapy by Dr. Jim Donnelly DO with a diagnosis of R Adhesive Capsulitis/strain of the R shoulder. Date of Evaluation: 10/06/23 Physical Therapist: KATHIE Uribe Visit Plan Frequency: 2x /Week Duration: 2 Months Plan: 2X/ week for 8 weeks for R shoulder PROM/AAROM/AROM, stretching, postural exercises, and eventually progress to strengthening when able HEP: pulleys flex/abd/IR Subjective Subjective: Pt has a frozen shoulder. She had an appointment for it and the night before she broke her wrist (06/22). She was being seen at [facility] for her wrist and was given HEP. She was told that her wrist issue is more her shoulder but she is not sure. She noticed one day about 9 months ago that her R shoulder was just not moving right. She is depressed as she can not move like she had been. All of the sudden she did not have the ROM that she had. They did an MRI and x-ray and they were clear. She got the cortisone injection 2 weeks ago and can raise it a little it more. She has been trying to move it a lot and does have an over the door linda. 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 She has not been able to lay on her R shoulder and has hindered her sleeping. Pain R shoulder pain: Pain Intensity (Out of 10): 0 Objective Objective: R handed: R 20# and L 59# Shoulder AROM: R flexion 112 and L 165 R shoulder ABD 109 and L 180 R IR T5 and S1 R ER 55 and L 68 Shoulder MMT: R shoulder Flexion 6.6 and L shoulder flexion 10.6 R shoulder ABD 6.9 and L 10.5 R ER 6.4 and L 8.1 R IR 8.1 and L 12 R shoulder PROM tight at end range flex, abd, IR, ER Pt has pulleys at home and did X 30 flex, ABD, and IR today to learn how to do it at home Posture: rounded shoulders and protracted shoulder blade Balance/Special Test Scores Quick DASH Score: 15.9075 Goals Goal 1:: I HEP Goal Time Frame: 8-12 Weeks Goal 2:: Increase R shoulder AROM (at the time of eval: Shoulder AROM: R flexion 112 and L 165 R shoulder ABD 109 and L 180 R IR T5 and S1 R ER 55 and L 68) Goal Time Frame: 8-12 Weeks Goal 3:: Increase R shoulder strength (at the time of the eval Shoulder MMT: R shoulder Flexion 6.6 and L shoulder flexion 10.6 R shoulder ABD 6.9 and L 10.5 R ER 6.4 and L 8.1 R IR 8.1 and L 12) Goal Time Frame: 8-12 Weeks Rehabilitation Potential Rehabilitation Potential: Good Anticipated Interventions Patient/Client Instruction: Educate patient on: Condition and Plan of Care For the Purpose of:: To decrease pain, To increase ROM, To improve nutrient delivery to tissue, To improve muscle performance and motor function, To improve ability to perform ADL's, To increase tolerance to activity/condition/position, To improve performance and independence with ADL's, To improve health of tissue, To decrease soft tissue restriction and To increase flexibility/ROM Therapeutic Exercise to Include: Strength training, Endurance training, Postural training, Flexibilty training, Neuromotor development, Passive ROM, Active ROM and Scapular Strength/Stabilization For the Purpose of:: To decrease pain, To decrease swelling/inflammation, To increase ROM, To improve muscle performance and motor function, To improve ability to perform ADL's, To increase tolerance to activity/condition/position, To improve performance and independence with ADL's, To improve health of tissue, To decrease soft tissue restriction and To increase flexibility/ROM Manual Therapy Techniques to Include: Mobilization, Passive ROM and Soft tissue mobilization For the Purpose of:: To decrease pain, To decrease swelling/inflammation, To increase ROM, To improve nutrient delivery to tissue, To improve muscle performance and motor function, To improve ability to perform ADL's, To increase tolerance to activity/condition/position, To improve performance and independence with ADL's, To decrease level of supervision to perform tasks, To improve ability of physical actions for home/community/work/leisure, To improve health of tissue, To decrease soft tissue restriction and To increase flexibility/ROM Cryotherapy (ice pack, ice massage): Yes Thermo therapy (hot pack): Yes For the Purpose of:: To decrease pain, To decrease swelling/inflammation, To increase ROM and To improve nutrient delivery to tissue Text: Thank you for the opportunity to evaluate your patient. For Medicare and Medicare HMO plans, please review the plan of care and approve it. It will need to be FAXED BACK to us at [phone] for Medicare purposes. For Medicare only, by signing this I certify the plan of care. Please let me know if there are questions or concerns regarding this plan of care. Physician Signature: Date:
--- NOTE | 2023-10-27 08:46 | HP.OTEVAL ---
Patient's Visit Information Visit Information Visit Information: SIMEON LLANOS is a 48 year old F, referred to Occupational Therapy by Dr. Jim Donnelly, DO, with a diagnosis of right lower end radius fx. Date of Evaluation: 10/27/23 Occupational Therapist: KARISSA Dempsey/Tasia, CHT Subjective Subjective: This 48 year old female was seen for OT eval with dx of a right lower end radius fx. pt states she has going to walk her dogs and got pulled down on Jun.23. pt states she went to ER in [place] and did see [facility] where she was splinted for about 6 weeks. pt states she suffered from right shoulder impingement as well during this time and continues to have limited use of her right UE. Pt states she is right handed and with her limited wrist and forearm motion she still has not returned to her PLOF. Pt states she would like to know what more she can do to improver her right forearm/wrist and strength. ADLs Fasteners: Zippers Kitchen: Open jars and Open bottle caps Comments: mod difficulty Household: Vacuum, Sweep/mop and Laundry Comments: mild difficulty Comments: pt states she has made accommodations with her limited ROM and strength ROM Forearm: right supination 45 left 90 Wrist: right 30/30 left 55/65 MP: right LF 0/90 PIP: right LF -35/80 DIP: right LF -20/40 Strength Protective Clothing Issuer: right 15# left 65# Lateral Pinch: right 8# left 12# Tripod Pinch: right 6# left 12# Sensation Sensation Comments: denies Quick DASH-Disab of Arm,Shoulder& Hand Quick DASH Score: 25.0000 Goals Goal:: 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 with ADLs and IADLs. Goal:: pt will demo a increase in right forearm supination to 80* to increase pts ind. with ADLS and IADLs by d/c. Pt will demo a increase in right wrist ext to 65* and flex to 55*to increase pt ind. with ADLs and IADLs by d/c. PT will demo a increase in PIP ext to -10* or less to improve pts FMS by d/c Goal:: pt will demo understanding of scar mtg by end of 2nd visits to decrease scar adhesions. 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 This limits pt with her IADLs and IADLs. pt would benefit from skilled OT services- due to pts co-pay and time frame pt will work with HEP and return every 3 weeks for 3 months to ensure she makes gains with her ROM and strength. Today therapist ed. pt on PROM for supination, wrist flex/ext and LF PIP ext. Pt demo understanding and agree to POC. Rehabilitation Potential: Good Anticipated Interventions Anticipated Interventions: A/AAROM/PROM, Strengthening, Scar Care, Triggerpoint Release, Modalities, Education re Diagnosis and Home Program Visit Plan Frequency: every 3 weeks Duration: 3 Months TEXT: Thank you for the opportunity to evaluate your patient. For Medicare and Medicare HMO plans, please review the plan of care and approve it. It will need to be FAXED BACK to us at [phone] for Medicare purposes. Please let me know if there are questions or concerns regarding this plan of care. Physician Signature: Date:
--- NOTE | 2024-01-11 18:53 | HP.PTREVAL ---
Re-Evaluation Intro: Dr. Jim Donnelly, DO, It has been my pleasure to treat SIMEON LLANOS over the last 14 visits for R Adhesive Capsulitis/strain of the R shoulder. Please see the progress note below for an update on the physical therapy plan of care! Subjective Subjective: Still sore in the front of the front to lateral side of the shoulder. Her ROM has improved and she is stretching it throughout the day at home. Pt had a c-spine MRI and she gets the results on Tuesday. Her neurologist will give her the results on Tuesday. She is very anxious about the results. Objective Objective/Function: R flexion 146 and L 165 R shoulder ABD 147 and L 180 R IR L1 and T5 R ER 70 and L 68 R shoulder flex 4-/5 and L 4/5 R shoulder ABD 4-/5 and L 4/5 R shoulder ER 4-/5 and L 4/5 Pt's R calf is tight and she has decreased DF strength and ROM....also has some decreased (seems) proprioception in the R knee. (gave her towel gastroc stretches, standing and sitting heel and toe raises and butt kicks). Plan Plan Plan: Pt to call in after her MRI results on Tuesday Balance/Gait/Functional tests Balance/Special Test Scores Quick DASH Score: 27.2725 Goals Goals Goal 1:: I HEP Goal Time Frame: 8-12 Weeks Goal Progress: Goal Met Goal 2:: Increase R shoulder AROM (at the time of eval: Shoulder AROM: R flexion 112 and L 165 R shoulder ABD 109 and L 180 R IR T5 and S1 R ER 55 and L 68) Goal Time Frame: 8-12 Weeks Goal 3:: Increase R shoulder strength (at the time of the eval Shoulder MMT: R shoulder Flexion 6.6 and L shoulder flexion 10.6 R shoulder ABD 6.9 and L 10.5 R ER 6.4 and L 8.1 R IR 8.1 and L 12) Goal Time Frame: 8-12 Weeks Anticipated Interventions Anticipated Interventions Patient/Client Instruction: Educate patient on: Condition and Plan of Care For the Purpose of:: To decrease pain, To increase ROM, To improve nutrient delivery to tissue, To improve muscle performance and motor function, To improve ability to perform ADL's, To increase tolerance to activity/condition/position, To improve performance and independence with ADL's, To improve health of tissue, To decrease soft tissue restriction and To increase flexibility/ROM Therapeutic Exercise to Include: Strength training, Endurance training, Postural training, Flexibilty training, Neuromotor development, Passive ROM, Active ROM and Scapular Strength/Stabilization For the Purpose of:: To decrease pain, To decrease swelling/inflammation, To increase ROM, To improve muscle performance and motor function, To improve ability to perform ADL's, To increase tolerance to activity/condition/position, To improve performance and independence with ADL's, To improve health of tissue, To decrease soft tissue restriction and To increase flexibility/ROM Manual Therapy Techniques to Include: Mobilization, Passive ROM and Soft tissue mobilization For the Purpose of:: To decrease pain, To decrease swelling/inflammation, To increase ROM, To improve nutrient delivery to tissue, To improve muscle performance and motor function, To improve ability to perform ADL's, To increase tolerance to activity/condition/position, To improve performance and independence with ADL's, To decrease level of supervision to perform tasks, To improve ability of physical actions for home/community/work/leisure, To improve health of tissue, To decrease soft tissue restriction and To increase flexibility/ROM Cryotherapy (ice pack, ice massage): Yes Thermo therapy (hot pack): Yes For the Purpose of:: To decrease pain, To decrease swelling/inflammation, To increase ROM and To improve nutrient delivery to tissue Re-Evaluation Ending Re-evaluation ending: Please do not hesitate to contact me at [phone] by phone or if you have questions or concerns regarding this new plan of care! Sincerely, KATHIE Uribe
== END 2024-01-11 19:00 | disposition home or self-care (01) ==
LOC: PT 17:30
PROVIDERS: PCP Family Medicine; Referring Provider Student in an Organized Health Care Education/Training Program; Visit Provider Student in an Organized Health Care Education/Training Program
DX: M75.01 Adhesive capsulitis of right shoulder (principal); S46.011D Strain of muscle(s) and tendon(s) of the rotator cuff of right shoulder, subsequent encounter
CPT/HCPCS: 97035; 97110; 97140; 97161; 97166; 97530; J2405

== ENCOUNTER 2024-02-06 11:10 | Day surgery (SDC) | payer BC, SELFPAY ==
[2024-02-06] VITALS (18 sets, daily range): BP systolic 156–193; BP diastolic 63–107; PULSE 90–115; RESP 14–18; TEMP 36.3–37.4; O2SAT 92–100; BMI 28.2
--- NOTE | 2024-02-06 11:15 | EKG12_ITS ---
Test Reason : PREOP Blood Pressure : / mmHG Vent. Rate : 108 BPM Atrial Rate : 108 BPM P-R Int : 096 ms QRS Dur : 082 ms QT Int : 346 ms P-R-T Axes : 065 032 -30 degrees QTc Int : 463 ms Sinus tachycardia with short PA ST & T wave abnormality, consider inferior ischemia Abnormal ECG No previous ECGs available Confirmed by SADE FLORENTINO, AURORA ([id number]), purchasing expeditor SAKINA ZEE ([id number]) on 02/13/2024 2:06:24 PM Referred By: Polo Light Confirmed By:AURORA STUART MD
--- NOTE | 2024-02-06 11:45 | RAD_ITS ---
STUDY: X-RAY - LEFT WRIST REASON FOR EXAM: Female, 48 years old. Intraoperative digital documentation views of the distal radial pin placement. TECHNIQUE: 6 intraoperative digital documentation view(s) of the wrist were obtained. COMPARISON: None. FINDINGS: 6 intraoperative digital documentation views show 4 pins placed through the distal radial oblique fracture with minimal displacement and intra-articular extension Digital documentation views as described . RAD/Wrist 2 Views IMPRESSION: Intraoperative digital documentation views. Electronically Signed: Silverio Wu MD at 14:12 EDT ,
[2024-02-06] MEDS: Lactated Ringers 1,000 ML 15 ML IV (12:04)
[2024-02-06] MEDS: Cefazolin 2 GM in 0.9% Normal Saline (100mL Bag) 100 ML IV (12:51)
--- NOTE | 2024-02-06 14:55 | PCM.OP.BLANK ---
Problems Associated Problem List Diagnoses (1) Colles' fracture of left radius: Operative Report Date of Procedure: 02/06/24 Preoperative diagnosis left distal radius fracture displaced Postoperative diagnosis: Same Operation: Closed reduction percutaneous pinning left wrist, splinting Surgeon: Dr. 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 She help with closed reduction, maintenance of reduction, pinning, bending and stabilization of K wires and splinting. Without surgical endoscopist surgical long-term could have been less optimal and surgical time would have been increased. Indications for surgery: Patient had sustained a wrist fracture. She declined closed reduction in the office. She wished to have close reduction with some type of fixation beyond splinting. Appropriate informed consent was obtained and signed Findings: Patient had a distal radius fracture that reduced nicely closed. It was noted to be unstable. She underwent K wire fixation with 0.54 mm K wires. We placed to through the radial styloid and to dorsal to volar. This stabilize the fracture nicely. She underwent routine splinting. Details of procedure: Patient was taken the OR given a general anesthetic. Reduction was carried out with traction countertraction. Nice reduction was obtained. Reduction was noted to be unstable. At this point her left upper extremity was prepped and draped usual orthopedic sterile fashion for the procedure. Fracture was again reduced with the help of an assistant offset press operator with traction countertraction and manipulation. With help of fluoroscopy under AP lateral and oblique fluoroscopic images we mapped out her bony anatomy on the skin. We ultimately placed placed 2 K wires from the radial styloid radially across the fracture bringing them out ulnarly just through the bone. We placed 2 K wires from dorsal to volar again coming out just through the more proximal cortex of the bone. This was verified under AP lateral bleak fluoroscopic images. Nice reduction was obtained and maintained while pinning. This was done with the help of the system. K wires were then bent and cut over the skin. We placed Xeroform around the bottoms of them. We did place a protective cover over the tip of the pin. We placed appropriate 4 x 4 sponges around the pins held in place with kerlex. AP splinting was applied with help with assistant offset press operator. This was held in place with Kerlix and Kevon wrap. X-rays have been taken throughout showing good reduction and good position of her hardware. Patient will follow-up in the office in 1 week. We will take x-rays and check her skin. Most likely pins will be left in 4 to 6 weeks. Recommended ice and elevation. Narcotic pain medication to been prescribed.
--- NOTE | 2024-02-06 16:23 | SUR.PHASEI ---
was unhooking patient from monitors in pacu to take to sdc, patient became diaphoretic and stated that she didnt feel right reconnected to monitor, heart rate 115, bp 185/107, heart rate 115. placed a cool washcloth on her head and waved a queseze ease in front of her face hooked back up to monitor, will watch for a while longer.
== END 2024-02-06 18:35 | disposition home or self-care (01) ==
LOC: SDC 11:11 → AC 11:12
PROVIDERS: PCP Family Medicine; Referring Provider Orthopaedic Surgery; Visit Provider Orthopaedic Surgery
PROC: (CPT 25606; principal; 2024-02-06 12:30)
DX: S52.532A Colles' fracture of left radius, initial encounter for closed fracture (principal); Y93.B3 Activity, free weights; W19.XXXA Unspecified fall, initial encounter; R03.0 Elevated blood-pressure reading, without diagnosis of hypertension; E66.3 Overweight; Z68.27 Body mass index [BMI] 27.0-27.9, adult
CPT/HCPCS: 25606; 01820; 73100; 76000; 93005; J7120; J2405

== ENCOUNTER 2024-02-18 12:09 | Emergency (ER) | payer BC, SELFPAY ==
[2024-02-18 12:11] VITALS: BP 155/121; PULSE 99; RESP 16; TEMP 36.1; O2SAT 100; BMI 27.8
--- NOTE | 2024-02-18 12:26 | EKG12_ITS ---
Test Reason : CP/HTN Blood Pressure : / mmHG Vent. Rate : 066 BPM Atrial Rate : 066 BPM P-R Int : 098 ms QRS Dur : 086 ms QT Int : 422 ms P-R-T Axes : 047 023 012 degrees QTc Int : 442 ms Sinus rhythm with short IN Septal infarct , age undetermined Abnormal ECG Confirmed by SADE FLORENTINO, AURORA ([id number]), commissioning editor MOHIT GAXIOLA ([id number]) on 02/20/2024 7:03:49 AM Referred By: Confirmed By:AURORA STUART MD
--- NOTE | 2024-02-18 12:28 | EDS_ITS ---
<Statement entered by Violeta Grant MD - 02/18/24 15:28> I have personally performed a face to face assessment of the patient and have reviewed the SHOBHA Note. Patient presents secondary to concerns of hypertension. She recently broke her wrist that required surgery. It was noted during her visits with that injury that her blood pressure has been running high. She is been checking at home it remains high. She had a recent telehealth visit with her PCP who asked her to keep an eye on it. They started her on low-dose propranolol to help with anxiety. Patient states despite this she continues to have significantly elevated blood pressures. On review of records, it does appear patient has been running high blood pressures on multiple visits over the last several months to year. Patient sitting upright in bed no acute distress. Nontoxic-appearing. Head and neck examination unremarkable. Heart is regular rate and rhythm. Sounds are clear. Abdomen is soft and nontender. Extremity examination reveals left upper extremity to be in a splint. She is able to wiggle fingers and has good sensation distally. EKG is sinus rhythm with no evidence of acute ischemia. No significant signs of LVH. 2 view chest x-ray per my interpretation reveals no focal infiltrate. No significant cardiomegaly. Radiology interpretation reviewed and agrees. Lab work including CBC, chemistry studies, and troponin are unremarkable. Urinalysis obtained and reveals no evidence of proteinuria. Patient be given prescription for metoprolol 25 mg. She is to take her blood pressure and if her systolic pressures greater than 160 she is to take the metoprolol. She is to keep a detailed journal of her blood pressure readings and how she feels at the time and take this to her next doctor's appointment with her. She is comfortable with this plan. HPI History of Present Illness Chief Complaint: Hypertension Narrative Narrative: Patient presenting today due to elevated blood pressure. She reports that she fractured her left wrist and had surgery performed 02/05, her blood pressure was high while in the ER and then after the surgery and she has been monitoring it over this past week and it has been elevated. She did have a visit with her PCP via telehealth this week who told her to keep an eye on it because prior to the surgery her blood pressure had been normal. Patient reports that she is also dealing with a lot of anxiety and recently started Lexapro and propranolol to help with her anxiety symptoms. She has had a slight midsternal chest tightness intermittently for the past several weeks and occasional shortness of breath which she attributes to the anxiety, she has experienced this today. She denies any headaches, blurred vision, nausea, and vomiting. [facility] Medical History Alcohol use Anxiety BPPV (benign paroxysmal positional vertigo) Cardiology follow-up encounter Depression Esophageal atresia Hemorrhoids Leg cramps Non-smoker Post-menopausal Wears glasses Home Medications cholecalciferol (vitamin D3) 25 mcg (1,000 unit) capsule (Vitamin D3) 25 mcg PO DAILY 02/11/22 [History Last Taken Unknown] buspirone 5 mg tablet 5 mg PO BID 02/03/24 [History Last Taken 02/06/24] calcium-magnesium 300 mg-300 mg tablet 1 tab PO DAILY 02/03/24 [History Last Taken Unknown] escitalopram oxalate 5 mg tablet 5 mg PO DAILY 02/03/24 [History Last Taken Unknown] multivitamin (Daily Multi-Vitamin tablet) 1 tab PO DAILY 02/03/24 [History Last Taken Unknown] vitamin E 268 mg (400 unit) capsule 268 mg PO DAILY 02/03/24 [History Last Taken Unknown] metoprolol tartrate 25 mg tablet 25 mg PO BID PRN hypertension #60 tabs 02/18/24 [Rx Last Taken Unknown] Allergy/AdvReac Type Severity Reaction Status Date / Time Penicillins Allergy Unknown Verified 02/18/24 12:10 Sulfa (Sulfonamide Allergy Unknown Verified 02/18/24 12:10 Antibiotics) Surgical History H/O sinus surgery History of esophageal surgery Hx of colonoscopy Status post open reduction and internal fixation (ORIF) of fracture Social History Smoking Status: Never smoker alcohol intake: never ROS ROS ED Constitutional Constitutional ED: Denies chills or fever(s) Eyes Eyes: Denies blurry vision Cardiovascular Cardiovascular: Denies chest pain or palpitations Respiratory/Chest Respiratory/Chest: Denies cough or dyspnea Gastrointestinal Gastrointestinal: Denies abdominal pain, nausea or vomiting Genitourinary Genitourinary ED: Denies dysuria, hematuria or urinary frequency Musculoskeletal Musculoskeletal: Denies arthralgias or myalgias Integumentary Denies rash Neurologic Neurologic: Denies headache(s), paresthesias or weakness Psychiatric Psychiatric: Reports anxiety; Denies suicidal ideation or suicidal thoughts EXAM Physical Exam Const Vital Signs: 02/18/24 12:11 02/18/24 12:24 02/18/24 14:10 Temperature 96.9 F L Temperature Source Temporal Pulse Rate 99 63 Respiratory Rate 16 14 Respiratory Effort Normal Non-Labored Respiratory Pattern Normal Blood Pressure 155/121 H 142/109 H Blood Pressure Mean 132 120 Pulse Ox 100 100 Oxygen Delivery Method Room Air Room Air 02/18/24 14:30 Temperature 96.9 F L Temperature Source Pulse Rate 69 Respiratory Rate 9 L Respiratory Effort Respiratory Pattern Blood Pressure 157/101 H Blood Pressure Mean 119 Pulse Ox 100 Oxygen Delivery Method Positive well nourished, well developed and no apparent distress General Appearance ED: well developed HEENT Reports normocephalic and head/scalp atraumatic Mouth ED: Yes moist mucous membranes normal Eyes PERRL and EOMs intact bilaterally Neck full ROM and supple Chest Wall inspection of chest normal Resp normal respiratory effort and clear to auscultation bilaterally Cardio regular rate and regular rhythm GI soft to palpation, non-tender, non-distended and no masses Back/Spine normal ROM and normal to inspection Extremity normal to inspection and full ROM Neuro oriented x3, CN's II-XII intact bilaterally, moves all extremities, no focal motor deficits and no sensory deficits noted Sensorium / Orientation: awake and alert Psych mental status grossly normal and thought process normal Skin no rashes or lesions noted and no wounds MDM MDM MDM Narrative Medical decision making narrative: Patient presenting due to hypertension. Blood pressure was 155/121. It has been elevated during previous visits here. She has noticed it has been more elevated over the past week. She is well-appearing and in no acute distress. She does appear anxious and has been struggling with anxiety over the past few weeks, no SI or HI. Recently started on Lexapro. This may be contributing to her hypertension. She has had a midsternal chest tightness intermittently over the past few weeks, cardiac labs will be obtained. CBC, BMP, UA, and troponin are unremarkable. UA does not show proteinuria, it does show 2+ bacteria and leukocytes but she is not having any urinary symptoms to indicate UTI. Chest x- ray negative for any acute findings. I do feel patient would benefit from medication to help manage her hypertension. We will have her take metoprolol as needed for the blood pressure, she can discontinue the propranolol given she just started this a few days ago. I encouraged that she keep track of the blood pressure so that she can go over this with her PCP. Return instructions discussed and she will be discharged home in stable condition. Lab Data Attestation: I reviewed the patient's lab results. Labs: Laboratory Results - last 24 hr 02/18/24 02/18/24 12:55 13:45 WBC 7.7 RBC 4.75 Hgb 14.5 Hct 44.0 MCV 92.6 MCH 30.5 MCHC 33.0 RDW Std Deviation 48.9 H RDW Coeff of Han 14.4 Plt Count 246 MPV 11.4 Immature Gran % (Auto) 0.400 Neut % (Auto) 72.2 H Lymph % (Auto) 18.7 L Atkinson % (Auto) 7.7 Eos % (Auto) 0.5 Baso % (Auto) 0.5 Absolute Neuts (auto) 5.5 Absolute Lymphs (auto) 1.43 Nucleated RBC % 0 Sodium 140 Potassium 4.1 Chloride 109 H Carbon Dioxide 29.0 Anion Gap 2 L BUN 8 Creatinine 0.82 Estim Creat Clear Calc 83.60 Est GFR (MDRD) Af Amer 95 Est GFR (MDRD) Non-Af 79 BUN/Creatinine Ratio 9.8 L Glucose 110 H Calcium 9.3 Troponin I High Sens 7 Urine Color Yellow Urine Clarity Clear Urine pH 8.0 Ur Specific Dyke 1.015 Urine Protein Negative Urine Glucose (UA) Normal Urine Ketones 15 H Urine Occult Blood Negative Urine Nitrite Negative Urine Bilirubin Negative Urine Urobilinogen Normal Ur Leukocyte Esterase 25 H Urine RBC 0 SEEN Urine WBC 0-5 SEEN Ur Squamous Epith Cells 0 SEEN Urine Bacteria 2+ Urine Mucus 0 SEEN Radiography X-Ray: Read by ED Physician Diagnostic Testing: Clinical Impression(s) from Imaging Studies Chest X-Ray 02/18/24 13:00 IMPRESSION: No radiographic evidence of acute cardiopulmonary disease. Electronically Signed: Kush Mcmahon MD at 13:45 EDT , EKG Initial EKG: Comments: 66 bpm, sinus rhythm, no ST elevation, reviewed and interpreted by attending ED physician Discharge Plan Triage Chief Complaint: Hypertension ED Midlevel Provider: Joi Jimenez ED Provider: Violeta Grant Dx/Rx/DC Orders Clinical Impression: Anxiety, Hypertension Instructions: ED Hypertension New Begin Treatment Prescriptions: New metoprolol tartrate 25 mg tablet 25 mg PO BID PRN (Reason: hypertension) Qty: 60 0RF No Action cholecalciferol (vitamin D3) [Vitamin D3] 25 mcg (1,000 unit) Capsule 25 mcg PO DAILY buspirone 5 mg tablet 5 mg PO BID escitalopram oxalate 5 mg tablet 5 mg PO DAILY multivitamin [Daily Multi-Vitamin] Tablet 1 tab PO DAILY calcium-magnesium 300-300 mg tablet 1 tab PO DAILY Rx Instructions: administer with a meal vitamin E 268 mg (400 unit) capsule 268 mg PO DAILY Primary Care Provider: KRISTOFER FORREST Referrals: KRISTOFER FORREST MD [Primary Care Provider] - 5-7 Days Activity Restrictions/Additional Instructions: Discontinue the propranolol and start the metoprolol as needed for your blood pressure. Please follow-up with your PCP and return for any worsening of your symptoms. Keep a diary of your blood pressure show your PCP. Disposition Disposition: Home, Self Care Discharge Date/Time: 02/18/24 14:34
--- NOTE | 2024-02-18 13:00 | RAD_ITS ---
INDICATION: chest pain EXAMINATION/TECHNIQUE: X-RAY - XR Chest 2 Views COMPARISON: Prior study dated: 11/26/2019 FINDINGS: LINES/DEVICES: None. LUNGS: No consolidation, edema or effusion. No pneumothorax. MEDIASTINUM AND CARDIOVASCULAR STRUCTURES: Cardiac silhouette not enlarged. Central airways and mediastinal contour are unremarkable. BONES AND SOFT TISSUES: Stable osseous structures. Dextroscoliosis. Old fractures of the right upper ribs. RAD/Chest PA and Lateral IMPRESSION: No radiographic evidence of acute cardiopulmonary disease. Electronically Signed: Kush Mcmahon MD at 13:45 EDT ,
[2024-02-18 13:04] LABS: Absolute Lymphocyte Count 1.43 X10^3/uL (0.83-4.51); Absolute Neutrophil Count 5.5 X10^3/uL (2.0-7.7); Basophil# 0.04 X10^3/uL; Basophil% 0.5 % (0-1); Eosinophil# 0.04 X10^3/uL; Eosinophils% 0.5 % (0-5); Hemoglobin 14.5 g/dL (12.0-15.0); Lymphocyte # 1.43 X10^3/ul (0.83-4.51); Lymphocyte % 18.7 % (19-41); Mean Corpuscular Hgb 30.5 pg (27.0-32.0); Mean Corpuscular Volume 92.6 fL (81-99); Mean Platelet Vol. 11.4 fl (6.2-12.0); Monocyte# 0.59 X10^3/uL; Monocyte% 7.7 % (0-10); NRBC Flagged by Analyzer 0 % (0-5); Neutrophil # 5.53 X10^3/uL (2.7-7.7); Neutrophil % 72.2 % (47-70); Platelet Count 246 K/mm3 (150-450); RBC Distribution Width CV 14.4 % (11.6-14.6); RBC Distribution Width SD 48.9 fl (35.1-43.9); Red Blood Count 4.75 M/mm3 (4.2-5.4); White Blood Count 7.7 K/mm3 (4.4-11.0)
[2024-02-18 13:20] LABS: Anion Gap 2 (5-15); BUN 8 mg/dL (7-18); BUN/Creat Ratio 9.8 RATIO (10-20); Calcium,Total 9.3 mg/dL (8.5-10.1); Chloride 109 mmol/L (98-107); Creatinine, Serum 0.82 mg/dL (0.55-1.02); EST Glomerular Filtration Rate 79 mL/min (>60); Est Glom Filt Rate - Afr Amer 95 mL/min (>60); Glucose 110 mg/dL (74-106); Potassium 4.1 mmol/L (3.5-5.1); Sodium Level 140 mmol/L (136-145); Troponin-I HS 7 pg/mL (3.0-54.0)
[2024-02-18 13:52] LABS: Mucous, Urine 0 SEEN /hpf (<or=2+); Red Blood Cells-Urine 0 SEEN /hpf (0-5); Squamous Epithelial Cells - UA 0 SEEN /hpf (5-10)
[2024-02-18 13:58] LABS: Color, Urine Yellow (Yellow); Glucose, Dipstick Normal (Normal); Ketone-Dipstick 15 mg/dl (Negative); Leukocyte Esterase-Dipstick 25 /ul (Negative); Nitrite-Dipstick Negative (Negative); Occult Blood-Urine Negative /ul (Negative); Protein-Dipstick Negative (Negative); Specific Gravity, Urine 1.015 (1.002-1.030); Urine Bilirubin Dipstick Negative (Negative); Urine Clarity Clear (Clear); Urine Urobilinogen Normal (Normal)
[2024-02-18 14:07] LABS: Bacteria 2+ /hpf (None Seen); White Blood Cells 0-5 SEEN /hpf (0-5)
[2024-02-18 14:10] VITALS: BP 142/109; PULSE 63; RESP 14; O2SAT 100
[2024-02-18 14:30] VITALS: BP 157/101; PULSE 69; RESP 9; TEMP 36.1; O2SAT 100
== END 2024-02-18 14:34 | disposition home or self-care (01) ==
PROVIDERS: Physician Assistant; Emergency Provider Emergency Medicine; PCP Family Medicine; Visit Provider Emergency Medicine
DX: F41.9 Anxiety disorder, unspecified (principal); I10 Essential (primary) hypertension; Z79.899 Other long term (current) drug therapy
CPT/HCPCS: 71046; 80048; 81001; 84484; 85025; 93005; 99284; A4216

== ENCOUNTER → 2024-06-14 | Outpatient (CLI) | payer BC, SELFPAY ==
--- NOTE | 2024-06-14 12:24 | BI_ITS ---
MAMMOGRAPHY - BILATERAL SCREENING REASON FOR EXAM: Female, 49 years old. Routine annual screening examination. PERTINENT HISTORY: Non-contributory. History of bilateral breast cysts. TECHNIQUE: Digital bilateral breast vickie (3D mammographic acquisition) in the CC and MLO projections. 2-D mediolateral oblique (MLO) and craniocaudad (CC) views of both breasts were obtained. CAD: Full Field Digital Mammography with Computer Added Detection was performed. COMPARISON: Comparison is made with prior examination dated March 04, 2023 and February 18, 2022. FINDINGS: Breast Composition: The breasts are heterogeneously dense, which may obscure small masses. The previously seen bilateral well-defined nodular densities have decreased in size as compared to prior study. No other significant abnormalities are identified. BI/SCRN MAMM (CAD)W/VICKIE BILAT IMPRESSION: Interval decrease in size of the bilateral well-defined nodular densities suggestive of cysts as seen on prior sonogram. Yearly follow-up mammogram recommended. (A) ASSESSMENT CATEGORY: BIRADS Category 2: Benign. A letter regarding these results will be sent to the patient by the facility within 30 days. Approximately 10% of breast cancers are not detected by mammography. A normal mammogram should not delay biopsy of a clinically suspicious abnormality. [id number] Electronically Signed: Hernan Raman MD at 13:45 EDT ,
== END | disposition home or self-care (01) ==
LOC: OPBI 12:23
PROVIDERS: PCP Family Medicine; Referring Provider Family Medicine; Visit Provider Family Medicine
DX: Z12.31 Encounter for screening mammogram for malignant neoplasm of breast (principal)
CPT/HCPCS: 77063; 77067

== ENCOUNTER → 2025-05-23 | Outpatient (CLI) | payer BC, SELFPAY ==
[2025-05-23 12:15] LABS: Cholesterol 225 mg/dL (<=200); Low Density Lipoprotein Calc. 119 mg/dL; Triglycerides 93 mg/dL; Very Low Density Lipoprotein 19 mg/dL (5-40); cholesterol:hdl ratio screen 2.57
[2025-05-23 12:35] LABS: Anion Gap 11 (5-15); BUN 14 mg/dL (4-19); BUN/Creat Ratio 14.8 RATIO (10-20); Calcium,Total 10.0 mg/dL (7.6-11.0); Carbon Dioxide 24.5 mmol/L (21.0-32.0); Chloride 105 mmol/L (98-108); Glucose 94 mg/dL (70-99); Potassium 4.6 mmol/L (3.3-5.1)
== END | disposition home or self-care (01) ==
LOC: LAB 09:38
PROVIDERS: PCP Family Medicine; Referring Provider Family Medicine; Visit Provider Family Medicine
DX: Z00.00 Encounter for general adult medical examination without abnormal findings (principal); Z13.220 Encounter for screening for lipoid disorders
CPT/HCPCS: 36415; 80048; 80061

== ENCOUNTER → 2025-07-18 | Outpatient (CLI) | payer BC, SELFPAY ==
--- NOTE | 2025-07-18 08:45 | BI_ITS ---
EXAM: SCRN MAMM (CAD)W/VICKIE BILAT DATE: 07/18/2025 CLINICAL HISTORY: F, Age 50 y/o , SCREENING Routine screening, history of right breast cysts TECHNIQUE: Procedure Code: [id number] Modality: MG Procedure: SCRN MAMM (CAD)W/VICKIE BILAT COMPARISON: Prior exam(s) dated 03/04/2023, 06/14/2024. FINDINGS: TISSUE DENSITY: There are scattered areas of fibroglandular density. Bilateral Breast Mammographic Findings: No significant masses, calcifications or other abnormalities are identified. Previously noted and ultrasound documented cysts in the right breast have decreased in size since previous studies. No new suspicious solid mass or architectural distortion. BI/SCRN MAMM (CAD)W/VICKIE BILAT IMPRESSION: Right breast cysts have decreased in size since previous study, no new suspicio us findings. Left breast is stable and unchanged OVERALL FINAL ASSESSMENT BI-RADS 2: BENIGN RECOMMENDATION: Routine annual follow-up in 1 Year Additional Recommendation none A letter with findings and recommendations will be mailed to the patient. Reading Location: [id number]
== END | disposition home or self-care (01) ==
LOC: OPBI 08:44
PROVIDERS: PCP Family Medicine; Referring Provider Family Medicine; Visit Provider Family Medicine
DX: Z12.31 Encounter for screening mammogram for malignant neoplasm of breast (principal)
CPT/HCPCS: 77063; 77067